=== PATIENT | female | born 1960 | race Caucasian/White ===

== ENCOUNTER → 2016-10-24 | Outpatient (CLI) | payer BC ==
[~2016-10-24] MED LIST: ACID CONTROLLER20 MG PO; ALLERGY10 M1 PO; ANUSOL SUPP1 SUPP PR; ASPIRIN325 M1 PO; ASPIRIN81 M2 PO; CERTAGEN PO; DITROPAN XL5 M2 PO; FAMOTIDINE20 MG PO; FISH OIL 1,0001 CAP PO; FLUOXETINE HCL20 M1 PO; LISINOPRIL PO; LOVASTATIN20 M1 PO; MEVACOR20 M1 PO; MULTI-DAY PLUS1 EACH PO; MULTIPLE VITAMI1 T11 PO; NIACIN PO; PRAVASTATIN SOD20 MG PO; PROBIOTIC1 EAC2 PO; PROTONIX PO; SELFEMRA20 MG PO; ZANTAC PO; ZESTRIL10 M2 PO; [UNRECOGNIZED DRUG - OTHER]
--- NOTE | ~2016-10-24 | MY11 ---
[facility] RADIOLOGY TEXT RESULTS PATIENT: ARSALAN VILLEGAS LOCATION: [facility] : 62 UNIT #: [id number] AGE: [address]: Kim Soni MD SEX: F ORDER DR: [id number] [address] [address] [id number] O MR#: [id number] Acc #: [id number] NAME: ARSALAN VILLEGAS : 1960 SEX: F STUDY DATE/TIME: 10/24/2016 10:09 UNIT: [facility] ROOM: STUDY DESCRIPTION: MY Mammogram Screening Dig Shekhar Attending Physician: Kim Soni M.D. Referring Physician: Kim Soni M.D. Ordering Physician: Kim Soni M.D. Primary Care Physician: Kim Soni M.D. MEDICAL IMAGING REPORT This report is preliminary unless electronic signature is present. EXAM Digital screening mammograms, 10/24/2016, [facility]. HISTORY 56-year-old woman no risk elevation. Prior excisional left breast biopsy. Annual screen. COMPARISON Mammograms date to 02/27/2007 with most recent 07/06/2015. TECHNIQUE Digital imaging of each breast was completed utilizing screening protocol. Review includes FDA-approved CAD device. FINDINGS Breast parenchyma is heterogeneous with fibroglandular opacities noted bilaterally. Mild nodularity projects upper central left breast. Occasional microcalcification with benign characteristics noted in each breast. I see no developing mass. There are no suspicious microcalcifications and no architectural deformity. IMPRESSION Benign mammogram. Annual screening recommended. Patients over the age of 40 are entered into a reminder system with target due date for the next mammogram. A result letter will also be sent to the patient. BIRADS: 2 Benign finding. [facility] RADIOLOGY TEXT RESULTS PATIENT: ARSALAN VILLEGAS LOCATION: [facility] : 62 UNIT #: [id number] AGE: [address]: Kim Soni MD SEX: F ORDER DR: Dictated by... Marco A Lin M.D. THIS IS AN ELECTRONICALLY VERIFIED REPORT Marco A Lin M.D. at 10/26/2016 8:06 AM ULYSSES/sen TD: 10/24/2016 17:34 JOB #: [id number] MEDICAL IMAGING REPORT Page 1 of 1
== END | disposition home or self-care (01) ==
LOC: SMAM 10-21 09:30
DX: Z12.31 Encounter for screening mammogram for malignant neoplasm of breast (principal); Z98.890 Other specified postprocedural states
CPT/HCPCS: G0202

== ENCOUNTER → 2016-11-17 | Outpatient (CLI) | payer BC | END | disposition home or self-care (01) | LOC: CECH 13:45 | DX: R42 Dizziness and giddiness (principal); R53.82 Chronic fatigue, unspecified | CPT/HCPCS: 93306 ==